=== PATIENT | male | born 1980 | race American Indian/Alaskan Native ===

== ENCOUNTER 2021-02-05 22:09 | Emergency (ER) | payer SELFPAY ==
--- NOTE | 2021-02-05 23:55 | XRay Report ---
CHEST PA AND LATERAL VIEWS INDICATION: chest pain. COMPARISON: None. FINDINGS: Support devices: None. Heart: Within normal limits. Lungs/Pleura: No acute pulmonary or pleural findings. IMPRESSION: 1. No acute findings. Signer Name: Natan Lambert MD Signed: 02/05/2021 11:50 PM Workstation Name: [id number]
[2021-02-06 00:25] LABS: Alanine Aminotransferase 31 units/L (7-56); Albumin 4.6 g/dL (3.9-5); BUN/Creatinine Ratio 7; Basophils % (Auto) 0.2 % (0.0-1.8); Blood Urea Nitrogen 7 mg/dL (9-20); Calcium 9.5 mg/dL (8.4-10.2); Eosinophils % (Auto) 0.1 % (0.0-4.3); Hematocrit 45.9 % (35.5-45.6); Hemoglobin 15.8 gm/dl (11.8-15.2); Hemolysis Index 9; Lymphocytes # (Auto) 1.2 K/mm3 (1.2-5.4); Mean Corpuscular HGB Conc 34 % (32-34); Mean Corpuscular Volume 96 fl (84-94); Monocytes # (Auto) 0.7 K/mm3 (0.0-0.8); Monocytes % (Auto) 8.3 % (0.0-7.3); Platelet Count 241 K/mm3 (140-440); Red Blood Count 4.77 M/mm3 (3.65-5.03); Red Cell Distribution Width 12.8 % (13.2-15.2)
[2021-02-06] MEDS ORDERED: ACETAMINOPHEN 500 MG TAB ONE (00:38)
[2021-02-06] MEDS ORDERED: ASPIRIN 325 MG TAB PO ONE (00:45)
[2021-02-06] MEDS ORDERED: hydrALAZINE 20 MG/1 ML INJ IV ONE (00:45)
[2021-02-06] MEDS ORDERED: ACETAMINOPHEN 500 MG TAB PO ONE (00:45)
[2021-02-06] MEDS ORDERED: DICYCLOMINE 20 MG TAB PO ONE (01:26)
[2021-02-06] MEDS ORDERED: amLODIPine 5 MG TAB PO ONE (02:14)
[2021-02-06 03:40] VITALS: BP 184/95
[2021-02-06] MEDS ORDERED: BUTALB/ACETAMINOPHEN/CAFFEINE TAB PO ONE (03:53)
[2021-02-06] MEDS ORDERED: PROMETHAZINE 25 MG TAB PO ONE (03:53)
--- NOTE | 2021-02-06 03:56 | Emergency Department Report ---
ED General Adult HPI - General Chief complaint: High BP Stated complaint: HIGH BLOOD PRSSURE Source: patient Mode of arrival: Ambulatory Limitations: No Limitations - History of Present Illness Initial comments: Patient is a 40-year-old -[place] male with no past medical history except uncontrolled hypertension presents to the ED for evaluation of his elevated blood pressure with headache and mild chest discomfort for the last 2 weeks. Patient states that he has also been having persistent headache and was initially evaluated at another hospital in [facility] 24 hours ago with the labs, chest x-ray but was ultimately discharged home on an antacid and medicine for anxiety, Ativan 1 mg tablets to be taken every 8 hours as needed for anxiety. Patient states that his blood pressure was never treated while he was at [facility]. Patient also states that no blood pressure medication prescriptions were given to him. Patient states that in the last 8 hours his headache and elevated blood pressure have been persistent and he decided come to the ED for further evaluation. Patient states that he has a lot of stressors at this time and attributes this to his elevated blood pressure although he admits that he has never been given prescription for hypertension. Patient denies shortness of breath, diaphoresis, palpitations, change in vision, dizziness, syncope, neck pain, nausea and vomiting, abdominal pain, change in vision, fever and chills or cough. MD Complaint: elevated blood pressure, chest discomfort, headache, -: Sudden, week(s) (2) Location: head, chest Radiation: non-radiation Severity scale (0 -10): 8 Quality: aching, dull Consistency: constant Improves with: none Worsens with: none Associated Symptoms: denies other symptoms, chest pain, loss of appetite. denies: confusion, cough, diaphoresis, fever/chills, headaches, malaise, nausea/vomiting, rash, seizure, shortness of breath, syncope, weakness, other Treatments Prior to Arrival: none - Related Data Previous Rx's Medication Instructions Recorded Last Taken Type Butalb/Acetamin/Caff 50-325-40 1 - 2 each PO Q6H PRN #12 tablet 02/06/21 Unknown Rx [Fioricet 50-325-40] Diphenoxylate/Atropine [Lomotil] 1 - 2 tab PO Q4H PRN #15 tablet 02/06/21 Unknown Rx Ibuprofen [Motrin] 800 mg PO Q8HR PRN #30 tablet 02/06/21 Unknown Rx Lisinopril/Hydrochlorothiazide 1 tab PO QDAY #30 tab 02/06/21 Unknown Rx [Zestoretic 20-12.5 mg] amLODIPine 10 mg PO DAILY #30 tab 02/06/21 Unknown Rx Allergies Allergy/AdvReac Type Severity Reaction Status Date / Time No Known Allergies Allergy Verified 02/06/21 00:26 ED Review of Systems ROS: Stated complaint: HIGH BLOOD PRSSURE Other details as noted in HPI Constitutional: other (Elevated blood pressure). denies: chills, fever Eyes: denies: eye pain, eye discharge, vision change ENT: denies: ear pain, throat pain Respiratory: denies: cough, shortness of breath, wheezing Cardiovascular: chest pain (Mild chest discomfort). denies: palpitations Endocrine: no symptoms reported Gastrointestinal: diarrhea. denies: abdominal pain, nausea, vomiting Genitourinary: denies: urgency, dysuria Musculoskeletal: denies: back pain, joint swelling, arthralgia Skin: denies: rash, lesions Neurological: headache. denies: weakness, paresthesias Psychiatric: denies: anxiety, depression Hematological/Lymphatic: denies: easy bleeding, easy bruising ED Past Medical Hx - Past Medical History Previous Medical History?: No Hx Hypertension: Yes - Surgical History Past Surgical History?: No - Medications Home Medications: Home Medications Medication Instructions Recorded Confirmed Last Taken Type Butalb/Acetamin/Caff 50-325-40 1 - 2 each PO Q6H PRN #12 tablet 02/06/21 Unknown Rx [Fioricet 50-325-40] Diphenoxylate/Atropine [Lomotil] 1 - 2 tab PO Q4H PRN #15 tablet 02/06/21 Unknown Rx Ibuprofen [Motrin] 800 mg PO Q8HR PRN #30 tablet 02/06/21 Unknown Rx Lisinopril/Hydrochlorothiazide 1 tab PO QDAY #30 tab 02/06/21 Unknown Rx [Zestoretic 20-12.5 mg] amLODIPine 10 mg PO DAILY #30 tab 02/06/21 Unknown Rx ED Physical Exam - General Limitations: No Limitations General appearance: alert, in no apparent distress, anxious - Head Head exam: Present: atraumatic, normocephalic, normal inspection - Eye Eye exam: Present: normal appearance, PERRL, EOMI Pupils: Present: normal accommodation - ENT ENT exam: Present: normal exam, normal orophraynx, mucous membranes moist, TM's normal bilaterally, normal external ear exam - Neck Neck exam: Present: normal inspection, full ROM. Absent: tenderness - Respiratory Respiratory exam: Present: normal lung sounds bilaterally. Absent: respiratory distress, wheezes, rales, rhonchi, chest wall tenderness, accessory muscle use, decreased breath sounds, prolonged expiratory - Cardiovascular Cardiovascular Exam: Present: regular rate, normal rhythm. Absent: systolic murmur, diastolic murmur, rubs, gallop - GI/Abdominal GI/Abdominal exam: Present: soft, normal bowel sounds. Absent: tenderness, guarding, rebound, hyperactive bowel sounds, hypoactive bowel sounds, organomegaly - Extremities Exam Extremities exam: Present: normal inspection, full ROM, normal capillary refill - Back Exam Back exam: Present: normal inspection, full ROM. Absent: tenderness, CVA tenderness (R), CVA tenderness (L), muscle spasm, paraspinal tenderness, vertebral tenderness - Neurological Exam Neurological exam: Present: alert, oriented X3, CN II-XII intact, normal gait, reflexes normal - Psychiatric Psychiatric exam: Present: normal affect, normal mood, anxious - Skin Skin exam: Present: warm, dry, intact, normal color. Absent: rash ED Course Vital Signs 02/05/21 02/06/21 02/06/21 23:04 00:46 02:24 Temperature 98.4 F Pulse Rate 100 H 88 Respiratory 18 Rate Blood Pressure 191/104 209/109 Blood Pressure [Right] O2 Sat by Pulse 99 Oximetry 02/06/21 03:39 Temperature 98.4 F Pulse Rate 97 H Respiratory 18 Rate Blood Pressure Blood Pressure 184/95 [Right] O2 Sat by Pulse 99 Oximetry ED Medical Decision Making - Lab Data Result diagrams: 02/05/21 23:35 02/05/21 23:35 - EKG Data EKG shows normal: sinus rhythm Rate: normal - EKG Data Interpretation: normal EKG 02/06/21 04:49 The initial EKG showed sinus rhythm with a ventricular rate of 81 bpm, and LVH pattern on EKG leads V3, V4, V5, V6 and leads II leads III aVF; also ST elevation with a probable normal early repolarization pattern. Repeat EKG after 2 hours remained unchanged in pattern but with a ventricular heart rate of 93 bpm - Radiology Data Radiology results: report reviewed, image reviewed [facility] [address] [place] [address] XRay Report Signed Patient: CATALINO RICARDO MR#: [id number] : 1980 Acct:[id number] Age/Sex: 40 / M ADM Date: 02/05/21 Loc: ED Attending Dr: Ordering Physician: SERGEY WYNNE Date of Service: 02/05/21 Procedure(s): XR chest routine 2V Accession Number(s): [id number] cc: SERGEY WYNNE Fluoro Time In Minutes: CHEST PA AND LATERAL VIEWS INDICATION: chest pain. COMPARISON: None. FINDINGS: Support devices: None. Heart: Within normal limits. Lungs/Pleura: No acute pulmonary or pleural findings. IMPRESSION: 1. No acute findings. Signer Name: Natan Lambert MD Signed: 02/05/2021 11:50 PM Workstation Name: [id number] Transcribed By: CLARISSE Dictated By: Natan Lambert MD Electronically Authenticated By: Natan Lambert MD Signed Date/Time: 02/05/212349 DD/ 49 TD/TT: - Medical Decision Making This is a 40-year-old -[place] male with no past medical history except uncontrolled hypertension presents to the ED for evaluation of his elevated blood pressure with headache and mild chest discomfort for the last 2 weeks. Patient states that he has also been having persistent headache and was initially evaluated at another hospital in [facility] 24 hours ago with the labs, chest x-ray but was ultimately discharged home on an antacid and medicine for anxiety, Ativan 1 mg tablets to be taken every 8 hours as needed for anxiety. Patient states that his blood pressure was never treated while he was at [facility]. Patient also states that no blood pressure medication prescriptions were given to him. Patient states that in the last 8 hours his headache and elevated blood pressure have been persistent and he decided come to the ED for further evaluation. Patient states that he has a lot of stressors at this time and attributes this to his elevated blood pressure although he admits that he has never been given prescription for hypertension. In the ED, patient is alert and oriented x3 and is not in any distress but anxious in triage and during physical exam.The initial EKG showed sinus rhythm with a ventricular rate of 81 bpm, LVH pattern on EKG leads V3, V4, V5, V6 and leads II, III and aVF; also ST elevation with a probable normal early repolarization pattern. Repeat EKG after 3 hours remained unchanged in pattern but with a ventricular heart rate of 93 bpm. Chest x-ray showed no acute cardiopulmonary abnormalities or pneumonitis. Lab test results were reviewed and are all nonactionable including the initial troponin level as well as 3-hour troponin level. Patient's heart score is 2. Patient was treated in the ED for pain and also given aspirin, also given blood pressure medications in the ED. On reevaluation, patient's pain is well controlled medication. Headache is resolved and blood pressure improved significantly with medications. Patient was advised to follow-up with his primary care physician in 5 to 7 days for reevaluation. Patient was also discharged home on prescriptions of antihypertensive medications and the patient was advised to return to the ED immediately if symptoms get worse, otherwise follow-up with his primary care physician as advised earlier. - Differential Diagnosis ACS; dissection; pneumonia; costochondritis; anxiety; PE; Critical care attestation.: If time is entered above; I have spent that time in minutes in the direct care of this critically ill patient, excluding procedure time. ED Disposition Clinical Impression: Uncontrolled stage 2 hypertension, Anxiety as acute reaction to exceptional stress Acute tension-type headache Qualifiers: Intractability: not intractable Qualified Code(s): G44.209 - Tension-type headache, unspecified, not intractable Disposition: 01 HOME / SELF CARE / HOMELESS Is pt being admited?: No Does the pt Need Aspirin: No Condition: Stable Instructions: Hypertension, Adult, [id number], Hypertension (ED), Tension Headache, Adult, [id number], General Headache Without Cause, [id number] Additional Instructions: All lab test results were reviewed and are all nonactionable. Therefore take medications for blood pressure as advised, drink plenty of fluids and follow-up with your primary care physician in 3 to 5 days for reevaluation. Return to the ED immediately if symptoms get worse Prescriptions: amLODIPine 10 mg PO DAILY #30 tab Butalb/Acetamin/Caff 50-325-40 [Fioricet 50-325-40] 1 - 2 each PO Q6H PRN #12 tablet PRN Reason: Headache Diphenoxylate/Atropine [Lomotil] 1 - 2 tab PO Q4H PRN #15 tablet PRN Reason: Diarrhea Ibuprofen [Motrin] 800 mg PO Q8HR PRN #30 tablet PRN Reason: Pain , Severe (7-10) Lisinopril/Hydrochlorothiazide [Zestoretic 20-12.5 mg] 1 tab PO QDAY #30 tab Referrals: [facility] [Provider Group] - 3-5 Days Forms: Work/School Release Form(ED) Time of Disposition: 03:53 Print Language: FILIPINO
--- NOTE | 2021-02-06 09:17 | Electrocardiograph Report ---
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
--- NOTE | 2021-02-06 09:17 | Electrocardiograph Report ---
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
--- NOTE | 2021-02-09 11:28 | Electrocardiograph Report ---
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
== END 2021-02-06 04:15 | disposition home or self-care (01) ==
LOC: ED 22:09
DX: I10 Essential (primary) hypertension (principal); G44.209 Tension-type headache, unspecified, not intractable; F41.9 Anxiety disorder, unspecified; Z79.899 Other long term (current) drug therapy
CPT/HCPCS: 36415; 71046; 80053; 84443; 84484; 85025; 93005; 96374; 99284; J0360; Q0169